=== PATIENT | male | born 1995 | race Caucasian/White ===

== ENCOUNTER 2020-04-11 16:02 | Emergency (ER) | payer OTHER ==
[2020-04-11 16:08] VITALS: BP 156/102; PULSE 90; RESP 18; TEMP 98.6
--- NOTE | 2020-04-11 16:28 | XR ---
EXAMINATION TYPE: XR finger RT DATE OF EXAM: 04/11/2020 COMPARISON: NONE HISTORY: Crushing injury with pain. TECHNIQUE: 3 views right second finger are acquired. FINDINGS: There is acute comminuted displaced fracture involving proximal two thirds of the second pr oximal phalanx with moderate surrounding soft tissue swelling. Intra-articular extension to the MCP j oint noted. Distal fracture fragment is displaced in a radial and palmar direction. Several small fra cture fragments present. IMPRESSION: As above.
[2020-04-11] MEDS ORDERED: ACET/COD 300 MG/30 MG STARTER PACK 6 TAB BTL PO STA (16:44)
--- NOTE | 2020-04-11 16:44 | ED ---
Upper Extremity HPI - General Chief Complaint: Extremity Injury, Upper Stated Complaint: IHS R Finger Injury Time Seen by Provider: 04/11/20 16:10 Source: patient, RN notes reviewed Mode of arrival: ambulatory Limitations: no limitations - History of Present Illness Initial Comments: 24-year-old male presents emergency Department chief complaint of right hand second digit pain. Patient states that he was at work and states tire kimberly Struck his finger. Patient states is swollen, very painful. Patient denies any other injuries patient is right-hand dominant no laceration. - Related Data Allergies Allergy/AdvReac Type Severity Reaction Status Date / Time No Known Allergies Allergy Verified 04/11/20 16:08 Review of Systems ROS Statement: Those systems with pertinent positive or pertinent negative responses have been documented in the HPI. ROS Other: All systems not noted in ROS Statement are negative. Past Medical History Past Medical History: No Reported History History of Any Multi-Drug Resistant Organisms: None Reported Past Surgical History: No Surgical Hx Reported Smoking Status: Former smoker Past Alcohol Use History: None Reported Past Drug Use History: None Reported General Exam Limitations: no limitations General appearance: alert, in no apparent distress Head exam: Present: atraumatic, normocephalic, normal inspection Respiratory exam: Present: normal lung sounds bilaterally. Absent: respiratory distress, wheezes, rales, rhonchi, stridor Cardiovascular Exam: Present: regular rate, normal rhythm, normal heart sounds. Absent: systolic murmur, diastolic murmur, rubs, gallop, clicks Extremities exam: Present: other (Right hand second digit there is tenderness between the MCP and PIP there is moderate swelling and ecchymosis noted neurovascular intact) Course Vital Signs 04/11/20 16:05 Temperature 98.6 F Pulse Rate 90 Respiratory 18 Rate Blood Pressure 156/102 O2 Sat by Pulse 100 Oximetry Procedures - Orthopedic Splinting/Casting Injury #1 Side: right Upper Extremity Injury Location: short arm, finger Upper Extremity Immobilizer: volar splint Medical Decision Making - Medical Decision Making Patient was splinted a short splint and will follow-up with orthopedics. Disposition Clinical Impression: Fracture of phalanx, proximal, right hand Disposition: HOME SELF-CARE Condition: Stable Instructions (If sedation given, give patient instructions): Finger Fracture (ED) Additional Instructions: Please return to the Emergency Department if symptoms worsen or any other concerns. Is patient prescribed a controlled substance at d/c from ED?: No Referrals: Dmitry Velásquez DO [Primary Care Provider] - 1-2 days Charles Alexander DO [Doctor of Osteopathic Medicine] - 1-2 days Time of Disposition: 16:44
== END 2020-04-11 17:31 | disposition home or self-care (01) ==
LOC: EC 16:02
DX: S62.610A Displaced fracture of proximal phalanx of right index finger, initial encounter for closed fracture (principal); Z87.891 Personal history of nicotine dependence; W22.8XXA Striking against or struck by other objects, initial encounter; Y93.89 Activity, other specified; Y92.69 Other specified industrial and construction area as the place of occurrence of the external cause; Y99.0 Civilian activity done for income or pay
CPT/HCPCS: 29125; 99283

== ENCOUNTER 2020-10-15 03:34 | Emergency (ER) | payer BC ==
--- NOTE | 2020-10-15 04:02 | ED ---
Abdominal Pain HPI - General Chief Complaint: Abdominal Pain Stated Complaint: Abd Pain Time Seen by Provider: 10/15/20 03:58 Source: patient Mode of arrival: ambulatory Limitations: no limitations - History of Present Illness Initial Comments: This patient is a 25-year-old man presenting to be evaluated for epigastric pain that is been going on since 8 PM. Patient states that it seems to get better and worse, that lasted number of hours, resolved and then recurred around 2 AM. He states the pain has subsequently improved again. Patient had a little bit of associated nausea no other symptoms. Last bowel movement yesterday and normal. No change in urination. MD Complaint: abdominal pain -: hour(s) Location: epigastric (The) Migration to: no migration Severity: moderate Quality: other (Pressure) Consistency: colicky Improves With: nothing Worsens With: nothing Associated Symptoms: nausea - Related Data Previous Rx's Medication Instructions Recorded Famotidine [Pepcid] 20 mg PO BID #14 tablet 10/15/20 Allergies Allergy/AdvReac Type Severity Reaction Status Date / Time No Known Allergies Allergy Verified 10/15/20 03:42 Review of Systems ROS Statement: Those systems with pertinent positive or pertinent negative responses have been documented in the HPI. ROS Other: All systems not noted in ROS Statement are negative. Constitutional: Denies: fever, chills Respiratory: Denies: cough, dyspnea Cardiovascular: Denies: chest pain, palpitations, edema Gastrointestinal: Reports: abdominal pain, nausea. Denies: vomiting, diarrhea, constipation, melena, hematochezia Genitourinary: Denies: dysuria, hematuria Musculoskeletal: Denies: back pain Skin: Denies: rash Neurological: Denies: headache, weakness, numbness Past Medical History Past Medical History: No Reported History History of Any Multi-Drug Resistant Organisms: None Reported Past Surgical History: Adenoidectomy, Orthopedic Surgery, Tonsillectomy Past Psychological History: No Psychological Hx Reported Smoking Status: Current some day smoker, Vaper Past Alcohol Use History: Occasional Past Drug Use History: None Reported General Exam Limitations: no limitations General appearance: alert, in no apparent distress Head exam: Present: atraumatic, normocephalic Eye exam: Present: normal appearance. Absent: scleral icterus, conjunctival injection ENT exam: Present: normal oropharynx Neck exam: Present: normal inspection Respiratory exam: Present: normal lung sounds bilaterally. Absent: respiratory distress, wheezes, rales, rhonchi, stridor Cardiovascular Exam: Present: regular rate, normal rhythm, normal heart sounds. Absent: systolic murmur, diastolic murmur, rubs, gallop (On) GI/Abdominal exam: Present: soft. Absent: distended, tenderness, guarding, rebound, rigid, mass Extremities exam: Present: normal inspection, normal capillary refill. Absent: pedal edema, calf tenderness Back exam: Present: normal inspection. Absent: CVA tenderness (R), CVA tenderness (L) Neurological exam: Present: alert Skin exam: Present: warm, dry, intact, normal color. Absent: rash (As tolerated) Course Vital Signs 10/15/20 03:36 Temperature 98.3 F Pulse Rate 98 Respiratory 18 Rate Blood Pressure 162/104 O2 Sat by Pulse 99 Oximetry Medical Decision Making - Lab Data Result diagrams: 10/15/20 04:21 10/15/20 04:21 Lab Results 10/15/20 10/15/20 10/15/20 Range/Units 04:21 04:21 04:21 WBC 8.8 (3.8-10.6) k/uL RBC 5.11 (4.30-5.90) m/uL Hgb 16.7 (13.0-17.5) gm/dL Hct 46.5 (39.0-53.0) % MCV 91.0 (80.0-100.0) fL MCH 32.6 (25.0-35.0) pg MCHC 35.8 (31.0-37.0) g/dL RDW 12.0 (11.5-15.5) % Plt Count 192 (150-450) k/uL MPV 7.4 Neutrophils % 70 % Lymphocytes % 20 % Monocytes % 5 % Eosinophils % 4 % Basophils % 0 % Neutrophils # 6.2 (1.3-7.7) k/uL Lymphocytes # 1.7 (1.0-4.8) k/uL Monocytes # 0.4 (0-1.0) k/uL Eosinophils # 0.4 (0-0.7) k/uL Basophils # 0.0 (0-0.2) k/uL Sodium 141 (137-145) mmol/L Potassium 3.9 (3.5-5.1) mmol/L Chloride 103 (98-107) mmol/L Carbon Dioxide 26 (22-30) mmol/L Anion Gap 12 mmol/L BUN 11 (9-20) mg/dL Creatinine 0.65 L (0.66-1.25) mg/dL Est GFR (CKD-EPI)AfAm >90 (>60 ml/min/1.73 sqM) Est GFR (CKD-EPI)NonAf >90 (>60 ml/min/1.73 sqM) Glucose 111 H (74-99) mg/dL Calcium 9.5 (8.4-10.2) mg/dL Total Bilirubin 0.3 (0.2-1.3) mg/dL AST 30 (17-59) U/L ALT 26 (4-49) U/L Alkaline Phosphatase 96 (38-126) U/L Total Protein 7.2 (6.3-8.2) g/dL Albumin 4.6 (3.5-5.0) g/dL Amylase 56 (30-110) U/L Lipase 234 (23-300) U/L Urine Color Yellow Urine Appearance Clear (Clear) Urine pH 6.0 (5.0-8.0) Ur Specific [place] 1.023 (1.001-1.035) Urine Protein Negative (Negative) Urine Glucose (UA) Negative (Negative) Urine Ketones Negative (Negative) Urine Blood Negative (Negative) Urine Nitrite Negative (Negative) Urine Bilirubin Negative (Negative) Urine Urobilinogen <2.0 (<2.0) mg/dL Ur Leukocyte Esterase Negative (Negative) - EKG Data -: EKG Interpreted by De EKG shows normal: sinus rhythm, axis (Normal), intervals (Normal), QRS complexes (Normal), ST-T waves (Normal) Rate: normal (rate 88 bpm) Interpretation: normal EKG Disposition Clinical Impression: Abdominal pain Disposition: HOME SELF-CARE Condition: Good Instructions (If sedation given, give patient instructions): Abdominal Pain (ED) Prescriptions: Famotidine [Pepcid] 20 mg PO BID #14 tablet Is patient prescribed a controlled substance at d/c from ED?: No Referrals: Dmitry Velásquez DO [Primary Care Provider] - 1-2 days
[2020-10-15 04:48] LABS: Basophils % (A) 0 %; Eosinophils # (A) 0.4 k/uL (0-0.7); Eosinophils % (A) 4 %; HCT 46.5 % (39.0-53.0); HGB 16.7 gm/dL (13.0-17.5); Lymphocytes # (A) 1.7 k/uL (1.0-4.8); Lymphocytes % (A) 20 %; MCH 32.6 pg (25.0-35.0); MCHC 35.8 g/dL (31.0-37.0); Mean Platelet Volume 7.4; Monocytes # (A) 0.4 k/uL (0-1.0); Monocytes % (A) 5 %; Neutrophils # (A) 6.2 k/uL (1.3-7.7); Neutrophils % (A) 70 %; Platelet Count 192 k/uL (150-450); RBC 5.11 m/uL (4.30-5.90); WBC 8.8 k/uL (3.8-10.6)
--- NOTE | 2020-10-15 04:51 | XR ---
EXAMINATION TYPE: XR KUB DATE OF EXAM: 10/15/2020 COMPARISON: NONE HISTORY: Abdominal pain TECHNIQUE: 2 views FINDINGS: Bowel gas pattern is normal. There is no sign of intestinal obstruction or pneumoperitoneum . Fecal pattern is normal. There are no pathologic calcifications. Lung bases are clear. There is no evidence of abdominal mass. Bony structures are intact. IMPRESSION: Nonacute abdomen.
[2020-10-15 04:53] LABS: ALT 26 U/L (4-49); AST 30 U/L (17-59); African American GFR (CKD) >90 (>60 ml/min/1.73 sqM); Albumin 4.6 g/dL (3.5-5.0); Alkaline Phosphatase 96 U/L (38-126); Amylase 56 U/L (30-110); Anion Gap 12 mmol/L; Blood Urea Nitrogen 11 mg/dL (9-20); Calcium 9.5 mg/dL (8.4-10.2); Carbon Dioxide 26 mmol/L (22-30); Chloride 103 mmol/L (98-107); Glucose 111 mg/dL (74-99); Lipase 234 U/L (23-300); Non-African American GFR(CKD) >90 (>60 ml/min/1.73 sqM); Potassium 3.9 mmol/L (3.5-5.1); Sodium 141 mmol/L (137-145); Total Bilirubin 0.3 mg/dL (0.2-1.3); Total Protein 7.2 g/dL (6.3-8.2)
[2020-10-15 05:38] LABS: Appearance,Urine Clear (Clear); Bilirubin,Urine Negative (Negative); Blood,Urine Negative (Negative); Color,Urine Yellow; Glucose,Urine (UA) Negative (Negative); Ketones,Urine Negative (Negative); Leukocyte Esterase,Urine Negative (Negative); Nitrite,Urine Negative (Negative); Protein,Urine Negative (Negative); Specific Gravity,Urine 1.023 (1.001-1.035); Urobilinogen,Urine <2.0 mg/dL (<2.0)
[2020-10-15 06:14] VITALS: BP 123/78; PULSE 84; RESP 16; TEMP 98
== END 2020-10-15 06:14 | disposition home or self-care (01) ==
LOC: EC 03:34
DX: R10.13 Epigastric pain (principal); R11.0 Nausea; F17.290 Nicotine dependence, other tobacco product, uncomplicated
CPT/HCPCS: 36415; 74018; 80053; 81003; 82150; 83690; 85025; 93005; 99284

== ENCOUNTER 2020-10-25 00:23 | Observation (INO) | payer BC ==
[2020-10-25] MEDS ORDERED: SODIUM CHLORIDE 0.9% 1,000 ML IV STA (00:46)
[2020-10-25] MEDS ORDERED: MAG HYDROX/AL HYDROX/SIMETH 30 ML, HYOSCYAMINE ELIXIR 10 ML, LIDOCAINE VISCOUS 2% 10 ML PO STA ×3 (00:46)
[2020-10-25] MEDS ORDERED: FAMOTIDINE 20 MG/2 ML VIAL IV STA (00:46)
--- NOTE | 2020-10-25 01:22 | ED ---
General Adult HPI - General Chief complaint: Abdominal Pain Stated complaint: Abdominal pain Time Seen by Provider: 10/25/20 00:29 Source: patient Limitations: no limitations - History of Present Illness Initial comments: 25-year-old male with a past medical history of hypertension presents to the emergency room for a chief complaint of abdominal pain. Patient reports that this started about a month and a half ago but then only came intermittently. However for the past 3 days patient states the pain is constant. States the pain is in the epigastric region. States that it is sometimes associated with nausea. Patient denies any alleviating factors but does recall eating pizza recently worsen the pain. Patient does admit to one episode of vomiting. Denies diarrhea.Patient has no other complaints at this time including shortness of breath, chest pain, abdominal pain, nausea or vomiting, headache, or visual changes. - Related Data Home Medications Medication Instructions Recorded Confirmed Famotidine [Pepcid AC] 10 mg PO BID 10/25/20 10/25/20 Melatonin 3 mg PO HS PRN 10/25/20 10/25/20 hydroCHLOROthiazide [Hydrodiuril] 12.5 mg PO DAILY 10/25/20 10/25/20 Previous Rx's Medication Instructions Recorded Docusate [Colace] 100 mg PO BID #30 capsule 10/26/20 HYDROcodone/APAP 5-325MG [[place] 1 tab PO Q6HR PRN 3 Days #12 tab 10/26/20 5-325] Allergies Allergy/AdvReac Type Severity Reaction Status Date / Time No Known Allergies Allergy Verified 10/25/20 07:56 Review of Systems ROS Statement: Those systems with pertinent positive or pertinent negative responses have been documented in the HPI. ROS Other: All systems not noted in ROS Statement are negative. Past Medical History Past Medical History: Hypertension History of Any Multi-Drug Resistant Organisms: None Reported Past Surgical History: Adenoidectomy, Orthopedic Surgery, Tonsillectomy Past Psychological History: No Psychological Hx Reported Smoking Status: Current some day smoker, Vaper Past Alcohol Use History: Occasional Past Drug Use History: None Reported General Exam Limitations: no limitations General appearance: alert, in no apparent distress Head exam: Present: atraumatic, normocephalic, normal inspection Eye exam: Present: normal appearance, PERRL, EOMI. Absent: scleral icterus, conjunctival injection, periorbital swelling ENT exam: Present: normal exam, mucous membranes moist Neck exam: Present: normal inspection, full ROM. Absent: tenderness, meningismus, lymphadenopathy Respiratory exam: Present: normal lung sounds bilaterally. Absent: respiratory distress, wheezes, rales, rhonchi, stridor Cardiovascular Exam: Present: regular rate, normal rhythm, normal heart sounds. Absent: systolic murmur, diastolic murmur, rubs, gallop, clicks GI/Abdominal exam: Present: soft, tenderness (epigastric tenderness noted, mild in nature, no guardign or rebound. No lower abdominal tenderness.), normal bowel sounds. Absent: distended, guarding, rebound, rigid Course Vital Signs 10/25/20 10/25/20 10/25/20 00:24 03:01 06:50 Temperature 98.1 F 98.0 F Pulse Rate 72 81 85 Pulse Rate [ Right] Respiratory 18 16 16 Rate Blood Pressure 170/107 149/97 154/91 Blood Pressure [Left Arm] O2 Sat by Pulse 97 96 Oximetry 10/25/20 09:09 Temperature 98.4 F Pulse Rate Pulse Rate [ 57 L Right] Respiratory 16 Rate Blood Pressure Blood Pressure 155/82 [Left Arm] O2 Sat by Pulse 98 Oximetry Medical Decision Making - Medical Decision Making Vitals stable. Patient does have mild acidosis on laboratory evaluation. Ultrasound of the right upper quadrant revealed a large gallbladder with possible minimal pericholecystic fluid or edema could relate to cholecystitis. He does have a positive sonographic Haque sign. Patient will be admitted for cholecystitis, started on Zosyn - Lab Data Result diagrams: 10/26/20 08:29 10/25/20 01:25 Lab Results 10/25/20 10/25/20 10/25/20 Range/Units 01:25 01:25 01:25 WBC 12.8 H (3.8-10.6) k/uL RBC 4.99 (4.30-5.90) m/uL Hgb 16.1 (13.0-17.5) gm/dL Hct 45.8 (39.0-53.0) % MCV 91.7 (80.0-100.0) fL MCH 32.2 (25.0-35.0) pg MCHC 35.1 (31.0-37.0) g/dL RDW 11.7 (11.5-15.5) % Plt Count 226 (150-450) k/uL MPV 7.9 Neutrophils % 75 % Lymphocytes % 15 % Monocytes % 6 % Eosinophils % 2 % Basophils % 0 % Neutrophils # 9.5 H (1.3-7.7) k/uL Lymphocytes # 2.0 (1.0-4.8) k/uL Monocytes # 0.8 (0-1.0) k/uL Eosinophils # 0.3 (0-0.7) k/uL Basophils # 0.0 (0-0.2) k/uL Sodium 139 (137-145) mmol/L Potassium 3.6 (3.5-5.1) mmol/L Chloride 101 (98-107) mmol/L Carbon Dioxide 26 (22-30) mmol/L Anion Gap 12 mmol/L BUN 12 (9-20) mg/dL Creatinine 0.72 (0.66-1.25) mg/dL Est GFR (CKD-EPI)AfAm >90 (>60 ml/min/1.73 sqM) Est GFR (CKD-EPI)NonAf >90 (>60 ml/min/1.73 sqM) Glucose 111 H (74-99) mg/dL Plasma Lactic Acid Beny (0.7-2.0) mmol/L Calcium 9.6 (8.4-10.2) mg/dL Total Bilirubin 0.4 (0.2-1.3) mg/dL AST 27 (17-59) U/L ALT 18 (4-49) U/L Alkaline Phosphatase 85 (38-126) U/L Total Protein 7.4 (6.3-8.2) g/dL Albumin 4.8 (3.5-5.0) g/dL Amylase 52 (30-110) U/L Lipase 245 (23-300) U/L Urine Color Yellow Urine Appearance Clear (Clear) Urine pH 6.0 (5.0-8.0) Ur Specific [place] 1.021 (1.001-1.035) Urine Protein Negative (Negative) Urine Glucose (UA) Negative (Negative) Urine Ketones Negative (Negative) Urine Blood Negative (Negative) Urine Nitrite Negative (Negative) Urine Bilirubin Negative (Negative) Urine Urobilinogen <2.0 (<2.0) mg/dL Ur Leukocyte Esterase Negative (Negative) 07/27/21 Range/Units 01:25 WBC (3.8-10.6) k/uL RBC (4.30-5.90) m/uL Hgb (13.0-17.5) gm/dL Hct (39.0-53.0) % MCV (80.0-100.0) fL MCH (25.0-35.0) pg MCHC (31.0-37.0) g/dL RDW (11.5-15.5) % Plt Count (150-450) k/uL MPV Neutrophils % % Lymphocytes % % Monocytes % % Eosinophils % % Basophils % % Neutrophils # (1.3-7.7) k/uL Lymphocytes # (1.0-4.8) k/uL Monocytes # (0-1.0) k/uL Eosinophils # (0-0.7) k/uL Basophils # (0-0.2) k/uL Sodium (137-145) mmol/L Potassium (3.5-5.1) mmol/L Chloride (98-107) mmol/L Carbon Dioxide (22-30) mmol/L Anion Gap mmol/L BUN (9-20) mg/dL Creatinine (0.66-1.25) mg/dL Est GFR (CKD-EPI)AfAm (>60 ml/min/1.73 sqM) Est GFR (CKD-EPI)NonAf (>60 ml/min/1.73 sqM) Glucose (74-99) mg/dL Plasma Lactic Acid Beny 0.7 (0.7-2.0) mmol/L Calcium (8.4-10.2) mg/dL Total Bilirubin (0.2-1.3) mg/dL AST (17-59) U/L ALT (4-49) U/L Alkaline Phosphatase (38-126) U/L Total Protein (6.3-8.2) g/dL Albumin (3.5-5.0) g/dL Amylase (30-110) U/L Lipase (23-300) U/L Urine Color Urine Appearance (Clear) Urine pH (5.0-8.0) Ur Specific [place] (1.001-1.035) Urine Protein (Negative) Urine Glucose (UA) (Negative) Urine Ketones (Negative) Urine Blood (Negative) Urine Nitrite (Negative) Urine Bilirubin (Negative) Urine Urobilinogen (<2.0) mg/dL Ur Leukocyte Esterase (Negative) Disposition Clinical Impression: Cholecystitis Disposition: ADMITTED IP TO THIS HOSP Condition: Stable Is patient prescribed a controlled substance at d/c from ED?: No Time of Disposition: 02:25
--- NOTE | 2020-10-25 01:45 | US ---
EXAMINATION TYPE: US abdomen limited DATE OF EXAM: 10/25/2020 COMPARISON: NONE CLINICAL HISTORY: abd pain,ruq. Abdominal pain. EXAM MEASUREMENTS: Liver Length: 15.2 cm Gallbladder Wall: 0.33 cm CBD: Limited. Not seen with certainty, measured at 0.31 cm Right Kidney: 10.9 x 5.1 x 4.8 cm Limited exam due to patient body habitus and overlying bowel gas. Pancreas: Obscured by gas. Liver: Appears to have an increased echogenicity. Gallbladder: Appears distended measuring 11.1 cm in length. Internal echoes seen, hyperechoic smooth -appearing material seen adjacent to wall: 5.0 x 0.3 x 0.7 cm. Evidence for sonographic Haque's sign: Yes CBD: Limited. Measured at 0.31cm. Right Kidney: Indistinct, hypoechoic area seen upper pole: 2.2 x 1.9 x 2.0 cm. IMPRESSION: Large gallbladder with possible minimal pericholecystic fluid or edema that could relate to cholecystitis. No dilated ducts.
--- NOTE | 2020-10-25 02:03 | XR ---
EXAMINATION TYPE: XR KUB DATE OF EXAM: 10/25/2020 COMPARISON: NONE HISTORY: Abdominal pain TECHNIQUE: 2 views FINDINGS: Bowel gas pattern is normal. There is no sign of intestinal obstruction or pneumoperitoneum . Fecal pattern is normal. Lung bases are clear. There are no pathologic calcifications. IMPRESSION: Nonacute abdomen.
[2020-10-25] MEDS ORDERED: KETOROLAC 15 MG/ML 1 ML VIAL IVP STA (02:12)
[2020-10-25] MEDS ORDERED: HYDROmorphone 0.5 MG/0.5 ML SYRINGE IVP STA (02:16)
[2020-10-25] MEDS ORDERED: PIPERACILLIN-TAZOBACTAM 3.375 GM in SODIUM CHLORIDE 0.9% 100 ML IVPB STA (02:16)
[2020-10-25] MEDS ORDERED: ONDANSETRON 4 MG/2 ML VIAL IVP PRN (02:22)
[2020-10-25] MEDS ORDERED: NALOXONE 0.4 MG/ML 1 ML VIAL IV PRN (02:22)
[2020-10-25 02:32] LABS: Appearance,Urine Clear (Clear); Bilirubin,Urine Negative (Negative); Blood,Urine Negative (Negative); Color,Urine Yellow; Glucose,Urine (UA) Negative (Negative); Ketones,Urine Negative (Negative); Leukocyte Esterase,Urine Negative (Negative); Nitrite,Urine Negative (Negative); Protein,Urine Negative (Negative); Specific Gravity,Urine 1.021 (1.001-1.035); Urobilinogen,Urine <2.0 mg/dL (<2.0)
[2020-10-25 02:40] LABS: Basophils % (A) 0 %; Eosinophils # (A) 0.3 k/uL (0-0.7); Eosinophils % (A) 2 %; HCT 45.8 % (39.0-53.0); HGB 16.1 gm/dL (13.0-17.5); Lymphocytes % (A) 15 %; MCH 32.2 pg (25.0-35.0); MCHC 35.1 g/dL (31.0-37.0); MCV 91.7 fL (80.0-100.0); Mean Platelet Volume 7.9; Monocytes # (A) 0.8 k/uL (0-1.0); Monocytes % (A) 6 %; Neutrophils # (A) 9.5 k/uL (1.3-7.7); Neutrophils % (A) 75 %; Platelet Count 226 k/uL (150-450); RBC 4.99 m/uL (4.30-5.90); RDW 11.7 % (11.5-15.5); WBC 12.8 k/uL (3.8-10.6)
[2020-10-25 02:49] LABS: ALT 18 U/L (4-49); AST 27 U/L (17-59); African American GFR (CKD) >90 (>60 ml/min/1.73 sqM); Albumin 4.8 g/dL (3.5-5.0); Alkaline Phosphatase 85 U/L (38-126); Amylase 52 U/L (30-110); Anion Gap 12 mmol/L; Blood Urea Nitrogen 12 mg/dL (9-20); Calcium 9.6 mg/dL (8.4-10.2); Carbon Dioxide 26 mmol/L (22-30); Chloride 101 mmol/L (98-107); Glucose 111 mg/dL (74-99); Lipase 245 U/L (23-300); Non-African American GFR(CKD) >90 (>60 ml/min/1.73 sqM); Potassium 3.6 mmol/L (3.5-5.1); Sodium 139 mmol/L (137-145); Total Bilirubin 0.4 mg/dL (0.2-1.3); Total Protein 7.4 g/dL (6.3-8.2)
[2020-10-25] MEDS: SODIUM CHLORIDE 0.9% 1,000 ML IV SCH ×3 (03:12→18:03)
[2020-10-25] MEDS: HYDROmorphone 0.5 MG/0.5 ML SYRINGE IVP PRN ×4 (03:12→17:36)
[2020-10-25] MEDS: PIPERACILLIN-TAZOBACTAM 3.375 GM in SODIUM CHLORIDE 0.9% 100 ML IVPB SCH ×2 (10:14→18:01)
--- NOTE | 2020-10-25 10:34 | P.GSHP ---
History of Present Illness H&P Date: 10/25/20 CHIEF COMPLAINT: Abdominal pain HISTORY OF PRESENT ILLNESS: This is a 25-year-old male with a known history of hypertension and nicotine dependence. Patient presents to the ER with complaints of right upper quadrant and epigastric pain for the last month and a half. Patient reports he's had intermittent episodes of severe pain. They last up to usually about 5 hours. But starting on Saturday after eating pizza and wings he had increase in abdominal pain and it has not resolved. He reports the pain radiates up into the right shoulder. He has had nausea and feeling hot and cold. He denies any actual fever. He denies any vomiting. Gallbladder ultrasound shows large gallbladder with possible minimal mishel-cholecystic fluid or edema that could relate to cholecystitis. No dilated ducts. White count elevated at 12.8. PAST MEDICAL HISTORY: See list. PAST SURGICAL HISTORY: See list. MEDICATIONS: See list. ALLERGIES: See list. SOCIAL HISTORY: No illicit drug use. REVIEW OF SYSTEMS: CONSTITUTIONAL: Denies fever or chills. HEENT: Denies blurred vision, vision changes, or eye pain. Denies hemoptysis CARDIOVASCULAR: Denies chest pain or pressure. RESPIRATORY: No shortness of breath. GASTROINTESTINAL: See HPI for pertinent findings HEMATOLOGIC: Denies bleeding disorders. GENITOURINARY: Denies any blood in urine or increased urinary frequency. SKIN: Denies pruitis. Denies rash. PHYSICAL EXAM: VITAL SIGNS: Reviewed GENERAL: Well-developed in no acute distress. HEENT: No sclera icterus. Extraocular movements grossly intact. Moist buccal mucosa. Head is atraumatic, normocephalic. No nasal drainage. ABDOMEN: Soft. Nondistended. Right upper quadrant tenderness with palpation NEUROLOGIC: Alert and oriented. Cranial nerves II through XII grossly intact. LABORATORY DATA: WBC 12.8 hemoglobin 16.1 platelets 226 sodium 139 potassium 3.6 creatinine 0.7 to lactic 0.7 LFTs normal Lipase 245 Urinalysis negative IMAGING: Gallbladder ultrasound as stated above ASSESSMENT: 1. Acute cholecystitis 2. Hypertension PLAN: -Patient scheduled for laparoscopic cholecystectomy today with Dr. Chau -Keep patient nothing by mouth -Continue IV antibiotics -Continue IV fluids -Continue pain medication as needed -Continue antiemetics -GI prophylaxis Protonix Physician Quill Picking Machine Operator note has been reviewed by physician. Signing provider agrees with the documented findings, assessment, and plan of care. Past Medical History Past Medical History: Hypertension History of Any Multi-Drug Resistant Organisms: None Reported Past Surgical History: Adenoidectomy, Orthopedic Surgery, Tonsillectomy Past Psychological History: No Psychological Hx Reported Smoking Status: Current some day smoker, Vaper Past Alcohol Use History: Occasional Past Drug Use History: None Reported Medications and Allergies Home Medications Medication Instructions Recorded Confirmed Type Famotidine [Pepcid AC] 10 mg PO BID 10/25/20 10/25/20 History Melatonin 3 mg PO HS PRN 10/25/20 10/25/20 History hydroCHLOROthiazide [Hydrodiuril] 12.5 mg PO DAILY 10/25/20 10/25/20 History Allergies Allergy/AdvReac Type Severity Reaction Status Date / Time No Known Allergies Allergy Verified 10/25/20 07:56 Surgical - Exam Vital Signs Temp Pulse Resp BP 98.1 F 72 18 170/107 10/25/20 00:24 10/25/20 00:24 10/25/20 00:24 10/25/20 00:24 Results - Labs 10/25/20 01:25 10/25/20 01:25 Abnormal Lab Results - Last 24 Hours (Table) 10/25/20 10/25/20 Range/Units 01:25 01:25 WBC 12.8 H (3.8-10.6) k/uL Neutrophils # 9.5 H (1.3-7.7) k/uL Glucose 111 H (74-99) mg/dL Diabetes panel 10/25/20 Range/Units 01:25 Sodium 139 (137-145) mmol/L Potassium 3.6 (3.5-5.1) mmol/L Chloride 101 (98-107) mmol/L Carbon Dioxide 26 (22-30) mmol/L BUN 12 (9-20) mg/dL Creatinine 0.72 (0.66-1.25) mg/dL Glucose 111 H (74-99) mg/dL Calcium 9.6 (8.4-10.2) mg/dL AST 27 (17-59) U/L ALT 18 (4-49) U/L Alkaline Phosphatase 85 (38-126) U/L Total Protein 7.4 (6.3-8.2) g/dL Albumin 4.8 (3.5-5.0) g/dL Calcium panel 10/25/20 Range/Units 01:25 Calcium 9.6 (8.4-10.2) mg/dL Albumin 4.8 (3.5-5.0) g/dL Pituitary panel 10/25/20 Range/Units 01:25 Sodium 139 (137-145) mmol/L Potassium 3.6 (3.5-5.1) mmol/L Chloride 101 (98-107) mmol/L Carbon Dioxide 26 (22-30) mmol/L BUN 12 (9-20) mg/dL Creatinine 0.72 (0.66-1.25) mg/dL Glucose 111 H (74-99) mg/dL Calcium 9.6 (8.4-10.2) mg/dL Adrenal panel 10/25/20 Range/Units 01:25 Sodium 139 (137-145) mmol/L Potassium 3.6 (3.5-5.1) mmol/L Chloride 101 (98-107) mmol/L Carbon Dioxide 26 (22-30) mmol/L BUN 12 (9-20) mg/dL Creatinine 0.72 (0.66-1.25) mg/dL Glucose 111 H (74-99) mg/dL Calcium 9.6 (8.4-10.2) mg/dL Total Bilirubin 0.4 (0.2-1.3) mg/dL AST 27 (17-59) U/L ALT 18 (4-49) U/L Alkaline Phosphatase 85 (38-126) U/L Total Protein 7.4 (6.3-8.2) g/dL Albumin 4.8 (3.5-5.0) g/dL
[2020-10-25] MEDS ORDERED: IV FLUID CONTINUATION 1,000 ML IV ONE ×2 (11:30)
[2020-10-25] MEDS ORDERED: HEPARIN SODIUM,PORCINE/PF 5,000 UNIT/0.5 ML SYRINGE SQ ONE (12:03)
[2020-10-25] MEDS ORDERED: DEXAMETHASONE SOD PHOSPHATE 4 MG/ML 1 ML VIAL IVP ONE (12:05)
[2020-10-25] MEDS ORDERED: ONDANSETRON 4 MG/2 ML VIAL IVP ONE (12:06)
[2020-10-25] MEDS ORDERED: SCOPOLAMINE 1.5MG/72HR PATCH TRANSDERM ONE (12:06)
[2020-10-25] MEDS ORDERED: NEOSTIGMINE 1 MG/ML 10 ML VIAL ONE (12:07)
[2020-10-25] MEDS ORDERED: GLYCOPYRROLATE 0.2 MG/ML 2 ML VIAL ONE (12:07)
[2020-10-25] MEDS ORDERED: SUCCINYLCHOLINE CHLORIDE 100 MG/5 ML SYR IV ONE (12:07)
[2020-10-25] MEDS ORDERED: MIDAZOLAM 2 MG/2 ML VIAL ONE (12:07)
[2020-10-25] MEDS ORDERED: ROCURONIUM 10 MG/ML (5 ML VIAL) IV ONE (12:07)
[2020-10-25] MEDS ORDERED: LIDOCAINE 1% INJ 10MG/ML (20 ML MDV) ONE (12:07)
[2020-10-25] MEDS ORDERED: PROPOFOL 10 MG/ML 20 ML VIAL IV ONE (12:07)
[2020-10-25] MEDS ORDERED: fentaNYL (PF) 50 MCG/ML 2 ML AMP ONE (12:07)
[2020-10-25] MEDS ORDERED: LACTATED RINGERS 1,000 ML IV ONE (12:30)
[2020-10-25] MEDS ORDERED: BUPIVACAINE (PF) 0.5% 30 ML VIAL SQ ONE (12:38)
--- NOTE | 2020-10-25 12:53 | P.OP ---
Date of Procedure: 10/25/20 Preoperative Diagnosis: Acute cholecystitis Postoperative Diagnosis: Acute cholecystitis Procedure(s) Performed: Laparoscopic cholecystectomy Anesthesia: JAZMÍN Surgeon: Ricardo Chau Estimated Blood Loss (ml): 10 Pathology: other (Gallbladder) Condition: stable Disposition: PACU Description of Procedure: MThe patient was placed on the operating table. The patient received a general endotracheal tube anesthesia. The patients abdomen was prepped and draped in the usual sterile fashion. Through an infraumbilical stab incision, the fascia of the anterior abdominal wall was grasped with a pair of Kochers and then the Veress needle was placed in the peritoneal cavity. Position of the Veress needle was confirmed with positive drop test. The abdomen was then insufflated. After adequate insufflation, the 10 mm trocar was placed in the peritoneal cavity. Following this the laparoscope was placed in the peritoneal cavity. The patient was placed in the head-up, right side up position and then a 5 mm trocar was placed in the right lateral and right subcostal position under direct visualization. A 8 mm trocar was placed in the epigastric position. The gallbladder is grossly inflamed. The gallbladder was aspirated. The gallbladder was grasped in the fundus and infundibulum. Traction on the gallbladder was placed in the lateral and the cephalad positions. The triangle of Calot was visualized.. The cystic duct was bluntly dissected until the union of the cystic duct and common bile duct was seen. A critical view of safety was achieved. The cystic duct was then divided and sealed with the Harmonic scissors. A PDS Endoloop was then placed throughout the cystic duct stump. The cystic artery divided and sealed with the Harmonic scissors. The gallbladder was then removed from the liver bed using Harmonic scissors. The gallbladder was then extracted through the epigastric port site. Operative field was checked for any bleeding spots and Harmonic scissors was used to coagulate the liver bed. The abdomen was irrigated. The trocars were removed. The skin was closed using interrupted 3-0 Vicryl suture. Dermabond dressing were applied. The patient tolerated the procedure well.
[2020-10-25] MEDS ORDERED: HYDROmorphone 0.5 MG/0.5 ML SYRINGE IVP ONE ×2 (12:57→13:43)
[2020-10-25] MEDS: PANTOPRAZOLE 40 MG/10 ML VIAL IVP SCH (14:46)
[2020-10-26 07:36] VITALS: BP 151/82; PULSE 65; RESP 18; TEMP 98.3
[2020-10-26] MEDS: SODIUM CHLORIDE 0.9% 1,000 ML IV SCH ×2 (07:41→09:37)
[2020-10-26] MEDS: PIPERACILLIN-TAZOBACTAM 3.375 GM in SODIUM CHLORIDE 0.9% 100 ML IVPB SCH ×2 (07:41→10:28)
[2020-10-26] MEDS ORDERED: HYDROcodone/APAP 5-325MG 1 EACH TAB PO PRN (08:06)
[2020-10-26] MEDS: PANTOPRAZOLE 40 MG/10 ML VIAL IVP SCH (08:51)
[2020-10-26] MEDS ORDERED: ENOXAPARIN 40 MG/0.4 ML SYRINGE SQ SCH (09:00)
[2020-10-26 09:22] LABS: Basophils % (A) 0 %; Eosinophils # (A) 0.2 k/uL (0-0.7); Eosinophils % (A) 1 %; HCT 48.3 % (39.0-53.0); HGB 16.3 gm/dL (13.0-17.5); Lymphocytes # (A) 2.2 k/uL (1.0-4.8); Lymphocytes % (A) 14 %; MCH 31.5 pg (25.0-35.0); MCHC 33.8 g/dL (31.0-37.0); MCV 93.3 fL (80.0-100.0); Mean Platelet Volume 7.4; Monocytes # (A) 0.9 k/uL (0-1.0); Monocytes % (A) 6 %; Neutrophils % (A) 77 %; Platelet Count 306 k/uL (150-450); RBC 5.18 m/uL (4.30-5.90); RDW 12.4 % (11.5-15.5); WBC 15.6 k/uL (3.8-10.6)
[2020-10-26] MEDS ORDERED: hydroCHLOROthiazide 12.5 MG CAP PO SCH (11:30)
--- NOTE | 2020-10-26 13:45 | P.DS ---
<Ana Maria Hay - Last Filed: 10/26/20 13:42> Providers Expected date of discharge: 10/26/20 Hospital Course: Discharge diagnosis 1. Acute cholecystitis status post laparoscopic cholecystectomy Hospital course This is a 25-year-old male who presented with rapid quadrant epigastric abdominal pain. His workup was positive for acute cholecystitis. Gallbladder ultrasound shows large gallbladder with possible minimal mishel-cholecystic fluid or edema that could relate to cholecystitis. No dilated ducts. White count elevated at 12.8. Patient tolerated surgery well. His pain is controlled. He is tolerating diet. He's having flatus. He is up and ambulating. His incision sites are clean dry and intact. He is stable for discharge. Please refer to chart for any further details. Physician Data Warehouse Consultant note has been reviewed by physician. Signing provider agrees with the documented findings, assessment, and plan of care. Patient Condition at Discharge: Stable Plan - Discharge Summary Discharge Rx Participant: No New Discharge Prescriptions: New Docusate [Colace] 100 mg PO BID #30 capsule HYDROcodone/APAP 5-325MG [Ohlman 5-325] 1 tab PO Q6HR PRN 3 Days #12 tab PRN Reason: Pain Continue Melatonin 3 mg PO HS PRN PRN Reason: Insomnia hydroCHLOROthiazide [Hydrodiuril] 12.5 mg PO DAILY Famotidine [Pepcid AC] 10 mg PO BID Discharge Medication List Famotidine [Pepcid AC] 10 mg PO BID 10/25/20 [History] Melatonin 3 mg PO HS PRN 10/25/20 [History] hydroCHLOROthiazide [Hydrodiuril] 12.5 mg PO DAILY 10/25/20 [History] Docusate [Colace] 100 mg PO BID #30 capsule 10/26/20 [Rx] HYDROcodone/APAP 5-325MG [Ohlman 5-325] 1 tab PO Q6HR PRN 3 Days #12 tab 10/26/20 [Rx] Follow up Appointment(s)/Referral(s): Dmitry Velásquez DO [Primary Care Provider] - 11/01/20 2:40 pm Ricardo Chau MD [STAFF PHYSICIAN] - 11/08/20 1:15 pm Patient Instructions/Handouts: Low Fat Diet (DC), Laparoscopic Cholecystectomy (DC) Activity/Diet/Wound Care/Special Instructions: No driving while taking Ohlman No lifting over 10 pounds You may shower. No soaking or tub baths for 2 weeks Very light activity until you are reevaluated at your follow up appointment with your surgeon Diet low fat Discharge Disposition: HOME SELF-CARE <Boyd Espinoza - Last Filed: 10/26/20 19:17> Providers Date of admission: 10/25/20 02:47 Attending physician: Ricardo Chau Consults: 10/25/20 10:28 Consult Physician Routine Consulting Provider: Dmitry Velásquez Reason/Comments: medical management Do you want consulting provider notified?: Yes Primary care physician: Dmitry Velásquez Hospital Course: As above. Patient doing well today. Pain improved. May discharge. Continue low-fat diet. Follow-up one week.
[2020-10-26] MEDS ORDERED: PIPERACILLIN-TAZOBACTAM 3.375 GM VIAL ONE (23:59)
[2020-10-26] MEDS ORDERED: HYDROmorphone 0.5 MG/0.5 ML SYRINGE ONE (23:59)
[2020-10-26] MEDS ORDERED: SODIUM CHLORIDE 0.9% 100 ML BAG ONE (23:59)
== END 2020-10-26 15:17 | disposition home or self-care (01) ==
LOC: EC 00:23 → 6NMEDSUR 02:47
PROVIDERS: ADMIT Surgery; ATTEND Surgery
DX: K81.0 Acute cholecystitis (principal); F17.200 Nicotine dependence, unspecified, uncomplicated; I10 Essential (primary) hypertension; Z79.899 Other long term (current) drug therapy
CPT/HCPCS: 47562; 96376 ×2; 96361; 96365; 96375; 99285; 36415; 88304; 80053; 82150; 83605; 83690; 85025 ×2; 81003; 87040; 74018; 76705; G0378 ×2; J2543 ×2; J2250; J1100; J2710; J2405; J2001; J3010; J0330; J2704; C9113; J1170; J1644

== ENCOUNTER 2021-06-10 12:59 | Emergency (ER) | payer BC ==
[2021-06-10] MEDS ORDERED: KETOROLAC 15 MG/ML 1 ML VIAL IM STA (14:08)
--- NOTE | 2021-06-10 14:33 | CT ---
EXAMINATION TYPE: CT brain wo con DATE OF EXAM: 06/10/2021 COMPARISON: None HISTORY: abnormal headache CT DLP: 1068.4 mGycm Automated exposure control for dose reduction was used. Ventricles have normal size. There is no mass effect or midline shift. There is no sign of intracrani al hemorrhage. Calvarium is intact. There is normal aeration of the mastoid sinuses. IMPRESSION: Normal unenhanced head CT scan.
[2021-06-10] MEDS ORDERED: AMOXIC-POT CLAV 875MG STARTER PACK 2 TAB BTL PO STA (14:36)
--- NOTE | 2021-06-10 14:38 | ED ---
Headache HPI - General Chief Complaint: Headache Stated Complaint: Migraine Time Seen by Provider: 06/10/21 13:12 Mode of arrival: ambulatory Limitations: no limitations - History of Present Illness Initial Comments: 25 year-old male patient presents to the emergency department for evaluation of left sided head pain. States it feels like a general aching with a pin pushing into his brain. States the pain started a week a week ago. States a few days afterwards he did develop a toothache to the left lower dentition. States he needs a root canal does have an appointment on Saturday. He denies any blurred or double vision. Denies nausea or vomiting. Denies any recent head injury. Denies numbness, tingling, weakness to his extremities. Denies fever or chills. Denies any history of migraines or headaches. - Related Data Home Medications Medication Instructions Recorded Confirmed Famotidine [Pepcid AC] 10 mg PO BID 10/25/20 10/25/20 Melatonin 3 mg PO HS PRN 10/25/20 10/25/20 hydroCHLOROthiazide [Hydrodiuril] 12.5 mg PO DAILY 10/25/20 10/25/20 Previous Rx's Medication Instructions Recorded Docusate [Colace] 100 mg PO BID #30 capsule 10/26/20 HYDROcodone/APAP 5-325MG [Beemer 1 tab PO Q6HR PRN 3 Days #12 tab 10/26/20 5-325] Amoxic-Pot Clav 875-125Mg 1 tab PO Q12HR #20 tablet 06/10/21 [Augmentin 875-125] Ibuprofen [Motrin] 600 mg PO Q8HR PRN #30 tab 06/10/21 Allergies Allergy/AdvReac Type Severity Reaction Status Date / Time No Known Allergies Allergy Verified 06/10/21 13:03 Review of Systems ROS Statement: Those systems with pertinent positive or pertinent negative responses have been documented in the HPI. ROS Other: All systems not noted in ROS Statement are negative. Past Medical History Past Medical History: Hypertension Additional Past Medical History / Comment(s): ABDOMINAL PAIN UNDER STERNUM MIDDLE OF ABDOMEN FOR THE LAST MONTH AND A HALF WITH NAUSEA AND HOT FEELING. BROKEN TOOTH LOWER LEFT REAR History of Any Multi-Drug Resistant Organisms: None Reported Past Surgical History: Adenoidectomy, Orthopedic Surgery, Tonsillectomy Additional Past Surgical History / Comment(s): PINS IN RT INDEX FINGER Past Anesthesia/Blood Transfusion Reactions: Motion Sickness Past Psychological History: No Psychological Hx Reported Smoking Status: Current some day smoker, Vaper Past Alcohol Use History: Occasional Past Drug Use History: None Reported General Exam Limitations: no limitations General appearance: alert, in no apparent distress, other (This is a well- developed, well-nourished adult male in no acute distress.) Eye exam: Present: normal appearance, PERRL, EOMI. Absent: scleral icterus, con junctival injection, nystagmus, periorbital swelling ENT exam: Present: normal exam, normal oropharynx, mucous membranes moist Respiratory exam: Present: normal lung sounds bilaterally. Absent: respiratory distress, wheezes, rales, rhonchi, stridor Cardiovascular Exam: Present: regular rate, normal rhythm, normal heart sounds. Absent: systolic murmur, diastolic murmur, rubs, gallop, clicks GI/Abdominal exam: Present: soft, normal bowel sounds. Absent: distended, tenderness, guarding, rebound, rigid Neurological exam: Present: alert, oriented X3, CN II-XII intact, other (Strength in all 4 extremities is 5/5.) Psychiatric exam: Present: normal affect, normal mood Skin exam: Present: warm, dry, intact, normal color. Absent: rash Course Vital Signs 06/10/21 06/10/21 13:00 14:53 Temperature 99.2 F 98.2 F Pulse Rate 88 81 Respiratory 20 16 Rate Blood Pressure 167/98 156/78 O2 Sat by Pulse 96 98 Oximetry Medical Decision Making - Medical Decision Making 25-year-old male patient presents to the emergency department today for evaluation of left-sided head pain and toothache. Physical examination did reveal poor dentition with broken tooth #18. Physical examination was otherwise unremarkable. Neurologically intact without focal deficits. CT brain is negative. We started on Augmentin for dental infection. He is given ibuprofen for pain. Be discharged to follow-up with dentistry as soon as possible. Instructed to follow-up with his primary care physician for recheck in 1-2 days. Return parameters were discussed in detail. He verbalizes understanding and agrees with this plan. My attending is Dr. Savage. - Radiology Data Radiology results: report reviewed, image reviewed CT brain without contrast was obtained. Report is reviewed in its entirety. Impression by Dr. Tavera shows normal unenhanced head CT scan. Disposition Clinical Impression: Headache, Dental infection Disposition: HOME SELF-CARE Condition: Good Instructions (If sedation given, give patient instructions): Dental Abscess (ED), Acute Headache (ED), Toothache (ED) Additional Instructions: Take medication as directed. Follow-up through primary care physician for recheck in 1-2 days. Follow up with dentist as planned. Return to the emergency department for any new, worsening, or concerning symptoms. Prescriptions: Amoxic-Pot Clav 875-125Mg [Augmentin 875-125] 1 tab PO Q12HR #20 tablet Ibuprofen [Motrin] 600 mg PO Q8HR PRN #30 tab PRN Reason: Pain Is patient prescribed a controlled substance at d/c from ED?: No Referrals: Dmitry Velásquez DO [Primary Care Provider] - 1-2 days Time of Disposition: 14:38
[2021-06-10 14:54] VITALS: BP 156/78; PULSE 81; RESP 16; TEMP 98.2
== END 2021-06-10 14:45 | disposition home or self-care (01) ==
LOC: EC 12:59
DX: R51.9 Headache, unspecified (principal); K04.7 Periapical abscess without sinus; F17.290 Nicotine dependence, other tobacco product, uncomplicated; I10 Essential (primary) hypertension; Z79.899 Other long term (current) drug therapy
CPT/HCPCS: 70450; 99284; 96372; J1885

== ENCOUNTER 2021-12-13 11:07 | Emergency (ER) | payer BC ==
[2021-12-13 11:35] VITALS: TEMP 98.4
[2021-12-13] MEDS ORDERED: SODIUM CHLORIDE 0.9% 1,000 ML IV STA (13:27)
[2021-12-13 13:52] LABS: Basophils # (A) 0.1 k/uL (0-0.2); Basophils % (A) 1 %; Eosinophils # (A) 0.3 k/uL (0-0.7); Eosinophils % (A) 3 %; HCT 47.1 % (39.0-53.0); HGB 15.9 gm/dL (13.0-17.5); Lymphocytes # (A) 2.3 k/uL (1.0-4.8); Lymphocytes % (A) 23 %; MCH 31.8 pg (25.0-35.0); MCHC 33.7 g/dL (31.0-37.0); MCV 94.3 fL (80.0-100.0); Mean Platelet Volume 7.8; Monocytes # (A) 0.6 k/uL (0-1.0); Monocytes % (A) 6 %; Neutrophils # (A) 6.6 k/uL (1.3-7.7); Neutrophils % (A) 66 %; Platelet Count 191 k/uL (150-450); RBC 4.99 m/uL (4.30-5.90); RDW 11.5 % (11.5-15.5)
[2021-12-13 14:02] LABS: Prothrombin Time 11.1 sec (9.0-12.0)
[2021-12-13 14:04] LABS: ALT 52 U/L (4-49); AST 45 U/L (17-59); African American GFR (CKD) >90 (>60 ml/min/1.73 sqM); Albumin 4.6 g/dL (3.5-5.0); Alkaline Phosphatase 74 U/L (38-126); Anion Gap 11 mmol/L; Blood Urea Nitrogen 14 mg/dL (9-20); Calcium 9.3 mg/dL (8.4-10.2); Carbon Dioxide 27 mmol/L (22-30); Chloride 99 mmol/L (98-107); Glucose 95 mg/dL (74-99); Lipase 237 U/L (23-300); Non-African American GFR(CKD) >90 (>60 ml/min/1.73 sqM); Potassium 4.4 mmol/L (3.5-5.1); Sodium 137 mmol/L (137-145); Total Bilirubin 0.5 mg/dL (0.2-1.3)
--- NOTE | 2021-12-13 14:35 | XR ---
EXAMINATION TYPE: XR chest 2V DATE OF EXAM: 12/13/2021 2:08 PM COMPARISON: None TECHNIQUE: XR chest 2V Frontal and lateral views of the chest. CLINICAL INDICATION:Male, 26 years old with history of Chest Pain; FINDINGS: Lungs/Pleura: There is no evidence of pleural effusion, focal consolidation, or pneumothorax. Pulmonary vascularity: Unremarkable. Heart/mediastinum: Cardiomediastinal silhouette is unremarkable. Musculoskeletal: No acute osseous pathology. IMPRESSION: No acute cardiopulmonary disease/process.
--- NOTE | 2021-12-13 15:12 | ED ---
General Adult HPI - General Chief complaint: Recheck/Abnormal Lab/Rx Stated complaint: fast heart rate Source: patient Mode of arrival: wheelchair Limitations: no limitations - History of Present Illness Initial comments: 26-year-old male presents to the emergency room in with reported palpitations. He states that he began having palpitations last night. He does admit to some associated chest discomfort because of the palpitations. No fevers or chills. No nausea or vomiting. No family history of cardiac disease. No personal history of cardiac issues. He denies ripping or tearing sensation to his back. No abdominal pain. Denies pleuritic chest pain. He does drink daily. Also admits to snorting cocaine 2 days ago. Patient has a history of high blood pressure. Takes his medications as directed. No other alleviating, precipitating or modifying factors - Related Data Home Medications Medication Instructions Recorded Confirmed hydroCHLOROthiazide [Hydrodiuril] 12.5 mg PO DAILY 10/25/20 12/13/21 Allergies Allergy/AdvReac Type Severity Reaction Status Date / Time No Known Allergies Allergy Verified 12/13/21 14:17 Review of Systems ROS Statement: Those systems with pertinent positive or pertinent negative responses have been documented in the HPI. ROS Other: All systems not noted in ROS Statement are negative. Past Medical History Past Medical History: Hypertension Additional Past Medical History / Comment(s): ABDOMINAL PAIN UNDER STERNUM MIDDL E OF ABDOMEN FOR THE LAST MONTH AND A HALF WITH NAUSEA AND HOT FEELING. BROKEN TOOTH LOWER LEFT REAR History of Any Multi-Drug Resistant Organisms: None Reported Past Surgical History: Adenoidectomy, Orthopedic Surgery, Tonsillectomy Additional Past Surgical History / Comment(s): PINS IN RT INDEX FINGER Past Anesthesia/Blood Transfusion Reactions: Motion Sickness Past Psychological History: No Psychological Hx Reported Smoking Status: Current every day smoker, Vaper Past Alcohol Use History: Abuse, Daily, Heavy Past Drug Use History: Cocaine, Marijuana General Exam Limitations: no limitations General appearance: alert, in no apparent distress Head exam: Present: atraumatic, normocephalic, normal inspection Eye exam: Present: normal appearance, PERRL, EOMI. Absent: scleral icterus, conjunctival injection, periorbital swelling ENT exam: Present: normal exam, mucous membranes moist Neck exam: Present: normal inspection. Absent: tenderness, meningismus, lymphadenopathy Respiratory exam: Present: normal lung sounds bilaterally. Absent: respiratory distress, wheezes, rales, rhonchi, stridor Cardiovascular Exam: Present: regular rate, normal rhythm, normal heart sounds. Absent: systolic murmur, diastolic murmur, rubs, gallop, clicks GI/Abdominal exam: Present: soft, normal bowel sounds. Absent: distended, tenderness, guarding, rebound, rigid Extremities exam: Present: normal inspection, full ROM, normal capillary refill. Absent: tenderness, pedal edema, joint swelling, calf tenderness Back exam: Present: normal inspection Neurological exam: Present: alert, oriented X3, CN II-XII intact Psychiatric exam: Present: normal affect, normal mood Skin exam: Present: warm, dry, intact, normal color. Absent: rash Course Vital Signs 12/13/21 12/13/21 12/13/21 11:32 13:09 15:41 Temperature 98.4 F Pulse Rate 83 78 81 Respiratory 16 20 18 Rate Blood Pressure 166/104 162/91 142/101 O2 Sat by Pulse 99 99 99 Oximetry EKG Findings - EKG Comments: EKG Findings:: EKG demonstrates sinus rhythm with a rate of 69. NV interval 155. QRS 11. QTC 391. No acute ST segment elevations or depressions Medical Decision Making - Medical Decision Making Upon arrival patient was placed into room 21. Thorough history and physical exam was performed. IV is established laboratory studies were conducted. Troponin is negative. Chest x-ray demonstrates no acute process. Twelve-lead EKG demonstrates normal sinus rhythm. Patient does have improvement in his blood pressure without medication administration. He does take hydrochlor othiazide 12.5 mg. Instructed that he can increase his dose to 25 mg. Needs follow up with primary care doctor for echo. Return for any new or worsening symptoms. Patient was agreeable to plan and discharged home in stable condition - Lab Data Result diagrams: 12/13/21 13:36 12/13/21 13:36 Lab Results 12/13/21 12/13/21 12/13/21 Range/Units 13:36 13:36 13:36 WBC 10.0 (3.8-10.6) k/uL RBC 4.99 (4.30-5.90) m/uL Hgb 15.9 (13.0-17.5) gm/dL Hct 47.1 (39.0-53.0) % MCV 94.3 (80.0-100.0) fL MCH 31.8 (25.0-35.0) pg MCHC 33.7 (31.0-37.0) g/dL RDW 11.5 (11.5-15.5) % Plt Count 191 (150-450) k/uL MPV 7.8 Neutrophils % 66 % Lymphocytes % 23 % Monocytes % 6 % Eosinophils % 3 % Basophils % 1 % Neutrophils # 6.6 (1.3-7.7) k/uL Lymphocytes # 2.3 (1.0-4.8) k/uL Monocytes # 0.6 (0-1.0) k/uL Eosinophils # 0.3 (0-0.7) k/uL Basophils # 0.1 (0-0.2) k/uL PT 11.1 (9.0-12.0) sec INR 1.0 (<1.2) APTT 25.0 (22.0-30.0) sec Sodium 137 (137-145) mmol/L Potassium 4.4 (3.5-5.1) mmol/L Chloride 99 (98-107) mmol/L Carbon Dioxide 27 (22-30) mmol/L Anion Gap 11 mmol/L BUN 14 (9-20) mg/dL Creatinine 0.82 (0.66-1.25) mg/dL Est GFR (CKD-EPI)AfAm >90 (>60 ml/min/1.73 sqM) Est GFR (CKD-EPI)NonAf >90 (>60 ml/min/1.73 sqM) Glucose 95 (74-99) mg/dL Calcium 9.3 (8.4-10.2) mg/dL Magnesium 2.0 (1.6-2.3) mg/dL Total Bilirubin 0.5 (0.2-1.3) mg/dL AST 45 (17-59) U/L ALT 52 H (4-49) U/L Alkaline Phosphatase 74 (38-126) U/L Troponin I (0.000-0.034) ng/mL Total Protein 7.0 (6.3-8.2) g/dL Albumin 4.6 (3.5-5.0) g/dL Lipase 237 (23-300) U/L 12/13/21 Range/Units 13:36 WBC (3.8-10.6) k/uL RBC (4.30-5.90) m/uL Hgb (13.0-17.5) gm/dL Hct (39.0-53.0) % MCV (80.0-100.0) fL MCH (25.0-35.0) pg MCHC (31.0-37.0) g/dL RDW (11.5-15.5) % Plt Count (150-450) k/uL MPV Neutrophils % % Lymphocytes % % Monocytes % % Eosinophils % % Basophils % % Neutrophils # (1.3-7.7) k/uL Lymphocytes # (1.0-4.8) k/uL Monocytes # (0-1.0) k/uL Eosinophils # (0-0.7) k/uL Basophils # (0-0.2) k/uL PT (9.0-12.0) sec INR (<1.2) APTT (22.0-30.0) sec Sodium (137-145) mmol/L Potassium (3.5-5.1) mmol/L Chloride (98-107) mmol/L Carbon Dioxide (22-30) mmol/L Anion Gap mmol/L BUN (9-20) mg/dL Creatinine (0.66-1.25) mg/dL Est GFR (CKD-EPI)AfAm (>60 ml/min/1.73 sqM) Est GFR (CKD-EPI)NonAf (>60 ml/min/1.73 sqM) Glucose (74-99) mg/dL Calcium (8.4-10.2) mg/dL Magnesium (1.6-2.3) mg/dL Total Bilirubin (0.2-1.3) mg/dL AST (17-59) U/L ALT (4-49) U/L Alkaline Phosphatase (38-126) U/L Troponin I <0.012 (0.000-0.034) ng/mL Total Protein (6.3-8.2) g/dL Albumin (3.5-5.0) g/dL Lipase (23-300) U/L Disposition Clinical Impression: Hypertension, Palpitations Disposition: HOME SELF-CARE Condition: Stable Instructions (If sedation given, give patient instructions): Heart Palpitations (ED) Additional Instructions: Please check your blood pressure daily. Keep a log. You can take 25 mg of your hydrochlorathiazide every day if your blood pressure is running above 130/90. Follow up with your primary care doctor. You need to have an echo of your heart. Return to emergency room for any new or worsening symptoms Is patient prescribed a controlled substance at d/c from ED?: No Referrals: Dmitry Velásquez DO [Primary Care Provider] - 1-2 days Time of Disposition: 15:11
[2021-12-13 15:42] VITALS: BP 142/101; PULSE 81; RESP 18
== END 2021-12-13 15:42 | disposition home or self-care (01) ==
LOC: EC 11:07
DX: I10 Essential (primary) hypertension (principal); R00.2 Palpitations; F17.290 Nicotine dependence, other tobacco product, uncomplicated; F12.90 Cannabis use, unspecified, uncomplicated; Z79.899 Other long term (current) drug therapy
CPT/HCPCS: 36415; 71046; 80053; 83690; 83735; 84484; 85025; 85610; 85730; 93005; 96360; 96361; 99285

== ENCOUNTER → 2023-02-06 | Outpatient (CLI) | payer BC ==
[2023-02-06 17:01] LABS: Chol/HDL Ratio 3.81 Ratio; LDL Cholesterol,Calculated 56.5 mg/dL (0.0-131.0)
== END | disposition home or self-care (01) ==
LOC: LABWHC1 10:23
PROVIDERS: ATTEND Student in an Organized Health Care Education/Training Program
DX: E78.5 Hyperlipidemia, unspecified (principal)
CPT/HCPCS: 36415; 80061; 83695

== ENCOUNTER 2024-01-20 07:10 | Emergency (ER) | payer BC ==
--- NOTE | 2024-01-20 07:30 | ED ---
Headache HPI - General Chief Complaint: Headache Stated Complaint: Headache Time Seen by Provider: 01/20/24 07:19 Source: patient, RN notes reviewed Mode of arrival: ambulatory Limitations: no limitations - History of Present Illness Initial Comments: This is a 28-year-old male who presents to the emergency department for headaches and fatigue. States that over the last 2 weeks he has had intermittent bouts of fatigue, difficulty concentrating, and occasional headaches. Headaches are relieved with aspirin. Denies any URI symptoms, fevers/chills, nausea, or vomiting. Also denies any chest pain or shortness of breath. Prior to the last 2 weeks he has never experienced anything like this before. Denies any headaches at this time. The headaches do not follow any specific pattern, however he has noticed that they seem to be worse towards the evening. MD Complaint: headache - Related Data Home Medications Medication Instructions Recorded Confirmed Cetirizine HCl [Zyrtec] 10 mg PO DAILY 01/20/24 01/20/24 Fluticasone Nasal [place] [Flonase 1 spray EA NOSTRIL DAILY 01/20/24 01/20/24 Nasal [place]] Lisinopril-Hctz 20-25 mg 1 tab PO DAILY 01/20/24 01/20/24 [Zestoretic 20-25] Multivitamin/Vitamin B12 1 tab PO DAILY 01/20/24 01/20/24 Rosuvastatin Calcium [Crestor] 5 mg PO HS 01/20/24 01/20/24 Allergies Allergy/AdvReac Type Severity Reaction Status Date / Time No Known Allergies Allergy Verified 01/20/24 10:09 Review of Systems ROS Statement: Those systems with pertinent positive or pertinent negative responses have been documented in the HPI. ROS Other: All systems not noted in ROS Statement are negative. Past Medical History Past Medical History: Hypertension Additional Past Medical History / Comment(s): ABDOMINAL PAIN UNDER STERNUM MIDDLE OF ABDOMEN FOR THE LAST MONTH AND A HALF WITH NAUSEA AND HOT FEELING. BROKEN TOOTH LOWER LEFT REAR History of Any Multi-Drug Resistant Organisms: None Reported Past Surgical History: Adenoidectomy, Orthopedic Surgery, Tonsillectomy Additional Past Surgical History / Comment(s): PINS IN RT INDEX FINGER Past Anesthesia/Blood Transfusion Reactions: Motion Sickness Past Psychological History: No Psychological Hx Reported Smoking Status: Current every day smoker, Vaper Past Alcohol Use History: Abuse, Daily, Heavy Past Drug Use History: Cocaine, Marijuana General Exam Limitations: no limitations General appearance: alert, in no apparent distress Head exam: Present: atraumatic, normocephalic, normal inspection Eye exam: Present: normal appearance, PERRL, EOMI. Absent: scleral icterus, conjunctival injection, periorbital swelling Respiratory exam: Present: normal lung sounds bilaterally. Absent: respiratory distress, wheezes, rales, rhonchi, stridor Cardiovascular Exam: Present: regular rate, normal rhythm, normal heart sounds. Absent: systolic murmur, diastolic murmur, rubs, gallop, clicks Neurological exam: Present: alert, oriented X3, CN II-XII intact Psychiatric exam: Present: normal affect, normal mood Skin exam: Present: warm, dry, intact, normal color. Absent: rash Course Vital Signs 01/20/24 01/20/24 01/20/24 07:13 07:30 08:24 Temperature 97.4 F L 97.6 F 98.5 F Pulse Rate 75 79 82 Respiratory 18 16 15 Rate Blood Pressure 164/85 151/96 123/81 O2 Sat by Pulse 100 99 98 Oximetry 01/20/24 01/20/24 01/20/24 09:00 09:57 10:47 Temperature Pulse Rate 74 63 69 Respiratory 17 17 18 Rate Blood Pressure 129/86 138/91 168/84 O2 Sat by Pulse 98 99 100 Oximetry Medical Decision Making - Medical Decision Making This is a 28 year old male who presents to the emergency department for headaches and fatigue. Was pt. sent in by a medical professional or institution? @ -No Did you speak to anyone other than the patient for history? @ -No Did you review nursing and triage notes? @ -Yes, and I agree, it is accurate with regards to the patient's symptoms. Were old charts reviewed? @ -No Differential Diagnosis? @ -Differential Headache: Migraine, tension, cluster, carbon monoxide, central venous thrombosis, pension karma temporal arteritis, acute closure glaucoma, intercranial hemorrhage, masto iditis, sinusitis, head injury, this is not meant to be an all-inclusive list. EKG interpreted by me (3pts min.)? @ -Not obtained X-rays interpreted by me (1pt min.)? @ -Not obtained CT interpreted by me (1pt min.)? @ -CT scan of the brain obtained. My interpretation identifies no evidence of an acute intracranial hemorrhage or mass effect. U/S interpreted by me (1pt. min.)? @ -Not obtained What testing was considered but not performed? (CT, X-rays, U/S, labs)? Why? @ -None What meds were considered but not given? Why? @ -None Did you discuss the management of the patient with other professionals? @ -No Did you reconcile home meds? @ -No Was smoking cessation discussed for >3mins.? @ -No Was critical care preformed (if so, how long)? @ -No Were there social determinants of health that impacted care today? How? ([place] elessness, low income, unemployed, alcoholism, drug addiction, transportation, low edu. Level, literacy, decrease access to med. care, fdc, rehab)? @ -No Was there de-escalation of care discussed even if they declined? (Discuss DNR or withdrawal of care, Hospice)? @ -No What co-morbidities impacted this encounter? (DM, HTN, Smoking, COPD, CAD, C ancer, CVA, Hep., AIDS, mental health diagnosis, sleep apnea, morbid obesity)? @ -Alcoholism, drug addiction Was patient admitted / discharged? @ -Discharged. Lab work unremarkable. Heterophile negative. COVID, influenza, and RSV testing negative. UDS negative. CT scan of the brain obtained revealing no acute process. Discussed with the patient that the cause of his symptoms is not entirely clear at this point. Advised that he will need to follow-up with his primary care provider for reevaluation and discussion of further testing. Advised ibuprofen and Tylenol as needed for pain relief in the meantime as well as drinking plenty of fluids. Patient discharged home in stable condition. Case discussed with ED attending Dr. Hampton. Return precautions reviewed in depth, the patient is instructed to return to the emergency department with any new, worsening, or concerning symptoms. Patient verbalized understanding. Undiagnosed new problem with uncertain prognosis? @ -None Drug Therapy requiring intensive monitoring for toxicity (Heparin, Nitro, Insulin, Cardizem)? @ -None Were any procedures done? @ -None Diagnosis/symptom? @ -Headaches, difficulty concentrating, fatigue Acute, or Chronic, or Acute on Chronic? @ -Acute Uncomplicated (without systemic symptoms) or Complicated (systemic symptoms)? @ -Uncomplicated Side effects of treatment? @ -None Exacerbation, Progression, or Severe Exacerbation] @ -Not applicable Poses a threat to life or bodily function? @ -This is impacting his performance at work - Lab Data Result diagrams: 01/20/24 07:42 01/20/24 07:42 Lab Results 01/20/24 01/20/24 01/20/24 Range/Units 07:42 07:42 07:42 WBC 8.3 (3.8-10.6) k/uL RBC 5.03 (4.30-5.90) m/uL Hgb 16.0 (13.0-17.5) gm/dL Hct 47.6 (39.0-53.0) % MCV 94.6 (80.0-100.0) fL MCH 31.7 (25.0-35.0) pg MCHC 33.5 (31.0-37.0) g/dL RDW 11.3 L (11.5-15.5) % Plt Count 221 (150-450) k/uL MPV 7.2 Neutrophils % 58 % Lymphocytes % 29 % Monocytes % 5 % Eosinophils % 5 % Basophils % 1 % Neutrophils # 4.9 (1.3-7.7) k/uL Lymphocytes # 2.4 (1.0-4.8) k/uL Monocytes # 0.5 (0-1.0) k/uL Eosinophils # 0.4 (0-0.7) k/uL Basophils # 0.1 (0-0.2) k/uL Sodium 138 (137-145) mmol/L Potassium 3.9 (3.5-5.1) mmol/L Chloride 104 (98-107) mmol/L Carbon Dioxide 27 (22-30) mmol/L Anion Gap 7 mmol/L BUN 15 (9-20) mg/dL Creatinine 0.80 (0.66-1.25) mg/dL Est GFR (CKD-EPI)AfAm >90 (>60 ml/min/1.73 sqM) Est GFR (CKD-EPI)NonAf >90 (>60 ml/min/1.73 sqM) Glucose 100 H (74-99) mg/dL Calcium 9.2 (8.4-10.2) mg/dL Magnesium 2.0 (1.6-2.3) mg/dL Total Bilirubin 0.5 (0.2-1.3) mg/dL AST 30 (17-59) U/L ALT 33 (4-49) U/L Alkaline Phosphatase 64 (38-126) U/L Total Protein 6.8 (6.3-8.2) g/dL Albumin 4.4 (3.5-5.0) g/dL TSH 3.610 (0.465-4.680) mIU/L Urine Opiates Screen (NotDetected) Ur Oxycodone Screen (NotDetected) Urine Methadone Screen (NotDetected) Ur Barbiturates Screen (NotDetected) U Tricyclic Antidepress (NotDetected) Ur Phencyclidine Scrn (NotDetected) Ur Amphetamines Screen (NotDetected) U Methamphetamines Scrn (NotDetected) U Benzodiazepines Scrn (NotDetected) Urine Cocaine Screen (NotDetected) U Marijuana (THC) Screen (NotDetected) Heterophile Antibody Negative (Negative) Influenza Type A (PCR) (Not Detectd) Influenza Type B (PCR) (Not Detectd) RSV (PCR) (Not Detectd) SARS-CoV-2 (PCR) (Not Detectd) 01/20/24 01/20/24 Range/Units 07:42 09:12 WBC (3.8-10.6) k/uL RBC (4.30-5.90) m/uL Hgb (13.0-17.5) gm/dL Hct (39.0-53.0) % MCV (80.0-100.0) fL MCH (25.0-35.0) pg MCHC (31.0-37.0) g/dL RDW (11.5-15.5) % Plt Count (150-450) k/uL MPV Neutrophils % % Lymphocytes % % Monocytes % % Eosinophils % % Basophils % % Neutrophils # (1.3-7.7) k/uL Lymphocytes # (1.0-4.8) k/uL Monocytes # (0-1.0) k/uL Eosinophils # (0-0.7) k/uL Basophils # (0-0.2) k/uL Sodium (137-145) mmol/L Potassium (3.5-5.1) mmol/L Chloride (98-107) mmol/L Carbon Dioxide (22-30) mmol/L Anion Gap mmol/L BUN (9-20) mg/dL Creatinine (0.66-1.25) mg/dL Est GFR (CKD-EPI)AfAm (>60 ml/min/1.73 sqM) Est GFR (CKD-EPI)NonAf (>60 ml/min/1.73 sqM) Glucose (74-99) mg/dL Calcium (8.4-10.2) mg/dL Magnesium (1.6-2.3) mg/dL Total Bilirubin (0.2-1.3) mg/dL AST (17-59) U/L ALT (4-49) U/L Alkaline Phosphatase (38-126) U/L Total Protein (6.3-8.2) g/dL Albumin (3.5-5.0) g/dL TSH (0.465-4.680) mIU/L Urine Opiates Screen Not Detected (NotDetected) Ur Oxycodone Screen Not Detected (NotDetected) Urine Methadone Screen Not Detected (NotDetected) Ur Barbiturates Screen Not Detected (NotDetected) U Tricyclic Antidepress Not Detected (NotDetected) Ur Phencyclidine Scrn Not Detected (NotDetected) Ur Amphetamines Screen Not Detected (NotDetected) U Methamphetamines Scrn Not Detected (NotDetected) U Benzodiazepines Scrn Not Detected (NotDetected) Urine Cocaine Screen Not Detected (NotDetected) U Marijuana (THC) Screen Not Detected (NotDetected) Heterophile Antibody (Negative) Influenza Type A (PCR) Not Detected (Not Detectd) Influenza Type B (PCR) Not Detected (Not Detectd) RSV (PCR) Not Detected (Not Detectd) SARS-CoV-2 (PCR) Not Detected (Not Detectd) - Radiology Data Radiology results: report reviewed, image reviewed Disposition Clinical Impression: Headache, Difficulty concentrating Disposition: HOME SELF-CARE Instructions (If sedation given, give patient instructions): Acute Headache (ED) Additional Instructions: Return to the emergency department with any new, worsening, or concerning symptoms. Alternate with ibuprofen and Tylenol as needed for any additional headaches. Follow up with your primary care provider in 1-2 days. Is patient prescribed a controlled substance at d/c from ED?: No Referrals: Dmitry Velásquez DO [Primary Care Provider] - 1-2 days Time of Disposition: 10:27
[2024-01-20] MEDS: SODIUM CHLORIDE 0.9% 1,000 ML IV STA (07:41)
[2024-01-20 07:52] LABS: Basophils # (A) 0.1 k/uL (0-0.2); Basophils % (A) 1 %; Eosinophils # (A) 0.4 k/uL (0-0.7); Eosinophils % (A) 5 %; HCT 47.6 % (39.0-53.0); Lymphocytes # (A) 2.4 k/uL (1.0-4.8); Lymphocytes % (A) 29 %; MCH 31.7 pg (25.0-35.0); MCHC 33.5 g/dL (31.0-37.0); MCV 94.6 fL (80.0-100.0); Mean Platelet Volume 7.2; Monocytes # (A) 0.5 k/uL (0-1.0); Monocytes % (A) 5 %; Neutrophils # (A) 4.9 k/uL (1.3-7.7); Neutrophils % (A) 58 %; Platelet Count 221 k/uL (150-450); RBC 5.03 m/uL (4.30-5.90); RDW 11.3 % (11.5-15.5); WBC 8.3 k/uL (3.8-10.6)
[2024-01-20 08:08] LABS: ALT 33 U/L (4-49); AST 30 U/L (17-59); African American GFR (CKD) >90 (>60 ml/min/1.73 sqM); Albumin 4.4 g/dL (3.5-5.0); Alkaline Phosphatase 64 U/L (38-126); Anion Gap 7 mmol/L; Blood Urea Nitrogen 15 mg/dL (9-20); Calcium 9.2 mg/dL (8.4-10.2); Carbon Dioxide 27 mmol/L (22-30); Chloride 104 mmol/L (98-107); Glucose 100 mg/dL (74-99); Non-African American GFR(CKD) >90 (>60 ml/min/1.73 sqM); Potassium 3.9 mmol/L (3.5-5.1); Sodium 138 mmol/L (137-145); Total Bilirubin 0.5 mg/dL (0.2-1.3); Total Protein 6.8 g/dL (6.3-8.2)
[2024-01-20 08:28] VITALS: TEMP 98.5
[2024-01-20 09:48] LABS: Amphetamine Screen,Urine Not Detected (NotDetected); Barbiturate Screen,Urine Not Detected (NotDetected); Benzodiazepines Screen,Urine Not Detected (NotDetected); Cocaine Screen,Urine Not Detected (NotDetected); Methadone Screen, Urine Not Detected (NotDetected); Opiate Screen,Urine Not Detected (NotDetected); Oxycodone Screen, Urine Not Detected (NotDetected); Phencyclidine Screen,Urine Not Detected (NotDetected); Tricyclic Antidepressant,Urine Not Detected (NotDetected); Urn Cannabinoid Scrn Not Detected (NotDetected)
[2024-01-20] MEDS: KETOROLAC 15 MG/ML 1 ML VIAL IVP STA (09:53)
[2024-01-20] MEDS: DEXAMETHASONE SOD PHOSPHATE 10 MG/ML 1 ML VIAL IVP STA (09:55)
--- NOTE | 2024-01-20 10:24 | CT ---
EXAMINATION TYPE: CT brain wo con DATE OF EXAM: 01/20/2024 COMPARISON: 06/10/2021 HISTORY: 28-year-old male Headaches, dizziness, memory loss TECHNIQUE: Examination was done in axial plane without intravenous contrast. Coronal and sagittal r econstructions performed. CT DLP: 1200.4 mGycm Automated exposure control for dose reduction was used. FINDINGS: There is no evidence of acute intracranial hemorrhage, acute ischemic changes, mass, mass-effect, or extra-axial fluid collection. There is no effacement of cerebral sulci or basal subarachnoid cister ns. There is no hydrocephalus. There is no midline shift. Engel-white matter distinction is preserv ed. Lobulated mucosal thickening anterior floor of the right maxillary sinus. Additional lobulated mucosa l thickening anterior of the left maxillary sinus. Orbits and globes appear intact. Mastoid air cells are well pneumatized. IMPRESSION: No acute intracranial abnormality seen. Mild chronic maxillary sinus disease. [facility], , 01/20/2024 10:21 AM
[2024-01-20 10:49] VITALS: BP 168/84; PULSE 69; RESP 18
== END 2024-01-20 10:49 | disposition home or self-care (01) ==
LOC: EC 07:10
CPT/HCPCS: 36415; 70450; 80053; 80306; 83735; 84443; 85025; 86308; 87636; 96361; 96374; 96375; 99284

== ENCOUNTER → 2024-05-27 | Outpatient (CLI) | payer BC ==
[2024-05-27 15:32] LABS: Chol/HDL Ratio 3.79 Ratio; LDL Cholesterol,Calculated 59.3 mg/dL (0.0-131.0)
[2024-05-27 16:09] LABS: NT-Pro-B-Type Natriuretic Pept <36 pg/mL (0-125)
== END | disposition home or self-care (01) ==
LOC: LABWHC1 10:57
PROVIDERS: ATTEND Student in an Organized Health Care Education/Training Program
DX: Z13.6 Encounter for screening for cardiovascular disorders (principal); I50.9 Heart failure, unspecified; E11.9 Type 2 diabetes mellitus without complications; E03.9 Hypothyroidism, unspecified; E78.5 Hyperlipidemia, unspecified
CPT/HCPCS: 36415; 80061; 83036; 83880; 84443; 86141